=== PATIENT | female | born 1960 | race Caucasian/White ===

== ENCOUNTER 2021-12-10 14:55 | Outpatient (CLI) | payer BC | END 2021-12-10 14:56 | disposition home or self-care (01) | LOC: TBSIIMAG 14:55 | PROVIDERS: ATTEND Orthopaedic Surgery | DX: M47.812 Spondylosis without myelopathy or radiculopathy, cervical region (principal); M50.30 Other cervical disc degeneration, unspecified cervical region; M43.12 Spondylolisthesis, cervical region; M50.223 Other cervical disc displacement at C6-C7 level | CPT/HCPCS: 72141 ==